=== PATIENT | female | born 1985 | race Caucasian/White ===

== ENCOUNTER 2019-06-24 19:28 | Emergency (ER) | payer OTHER, MEDICAID ==
[~2019-06-24] VITALS: Ht 172.7 cm; Wt 99.8 kg
[~2019-06-24 19:28] MED LIST: BIRTH CONTROL; CELEXA10 MG PO; CIPROFLOXIN HC2.5 M1 OPHTHALMIC; CITRATE OF MAG296 ML PO; CYCLOBENZAPRINE10 MG PO; IBUPROFEN 800800 M1 PO; MEDROL DOSPAK21 TA1 PO; NUVARING VAGIN1 EACH VG; ORAPRED ODT30 MG PO; PRELONE15 MG/5 ML PO; SPRINTEC1 EACH PO; TRIAMCINOLONE A80 G2 TOP; TRIMETHOPRIM /P10 M1 OTIC
[2019-06-24] MEDS ORDERED: AUGMENTIN200 MG/5 M PO (20:04)
[2019-06-24] MEDS ORDERED: ORAPRED15 MG/5 ML PO (20:04)
[2019-06-24 20:45] VITALS: BP 122/68
== END 2019-06-24 20:45 | disposition home or self-care (01) ==
LOC: M.ERS 19:28
DX: J03.90 Acute tonsillitis, unspecified (principal); F32.9 Major depressive disorder, single episode, unspecified; Z98.890 Other specified postprocedural states; Z20.818 Contact with and (suspected) exposure to other bacterial communicable diseases